=== PATIENT | male | born 1960 | race Caucasian/White ===

== ENCOUNTER 2018-02-13 05:59 | Emergency (ER) | payer SELFPAY ==
[2018-02-13] MEDS ORDERED: ONDANSETRON HCL 4 MG TAB.RAPDIS ONE (06:30)
--- NOTE | 2018-02-13 06:30 | ED Physician Documentation ---
Ankle Injury - HISTORIAN Historian: patient, other (LAW ENFORCEMENT) - HPI Stated Complaint: rt knee pain Chief Complaint: Ankle Injury Additional Information: PT REPORTEDLY INJURED LT ANKLE-FX IN NOVEMBER THIS YEAR IN HOSP IN [place] FOR 3WEEKS-=NO APPAERENT SURGICAL INNERVENTION. STILL HURTS BUT NO NEW INJURY. PT ALSO C/O RT KNEE PAIN BUT NO KNOWN INJURY.PT NOTED TO BEND KNEE W/O DIFFICULTY. THERE IS NO SWLELLING INFLAMATION OR DISCOLORATION-TATOO IS NOTED Onset: other Where: other (SLIPPEDD ON ICE WHEN INJURED ANKLE IN NOV) Severity: moderate r: fall Associated Symptoms:: denies: tingling, numbness distally, swelling, snapping sensation, popping sensation, unable to bear weight Modifying Factors:: pain on movement (BOTH ANKLE AND KNEE) - ROS CONST: no problems (PT IN APPARENTLY HOMELESS). denies: recent illness, fever, chills CVS/RESP: none NEURO: other (PT WAS ATTEMPTING TO VOMIT IN PLASTIC BAG WHEN I FIRST ENTERED ROOMBUT DURING EXAM HE MADE NO EFFORT OR SIGN OF EMESIS. HE STATLED HE HAD BEEN DRINKING APPROX 1/5 VODKA daily.). denies: headache, head injury, dizziness MS/SKIN/LYMPH: back pain, foot swelling, ankle swelling (but i did not see swelling of lknee opr foot and he bent the knee appprox 110 degrees readily to pull up pants leg for examination. there was no swelling or discoloratin only subjective pain when I touched or gently stressed the knee) - PAST HX Past History: cardiac, other (daily etoh-vodka) Allergies/Adverse Reactions: Allergies Allergy/AdvReac Type Severity Reaction Status Date / Time No Known Allergies Allergy Verified 02/13/18 06:18 Home Medications: Ambulatory Orders Medication Instructions Recorded Unobtainable [Unobtainable] 02/13/18 - SOCIAL HX Smoking History: less than 1 pack/day Alcohol Use: heavy Drug Use: none - FAMILY HX Family History: no significant history - VITAL SIGNS Vital Signs: Vital Signs Temp Pulse Resp BP Pulse Ox 97.5 F L 89 20 138/88 98 02/13/18 06:00 02/13/18 06:00 02/13/18 06:00 02/13/18 06:00 02/13/18 06:00 - REVIEWED ASSESSMENTS Nursing Assessment Reviewed: Yes Vitals Reviewed: Yes ED Results Lab/Radiology - Radiology Radiology Impressions: xray ankle fails to show evidence of injury-no fx seen -joint spaces are as expected - Orders Orders: ED Orders Category Date Time Status ANKLE 3 VIEWS OR MORE [RAD] Stat Exams 02/13/18 Ordered Ankle Injury Physical Exam - Physical Exam General Appearance: mild distress (subjective only) Gait: other (pt shows some signs of difficult ambulatin but states no new injury. law enforcement prev reports saw him ambulatle w/o difficulty prior to custody.) Neuro: sensation nml, motor nml Vascular: no vascular compromise. No: pallor, cool skin, abnml cap refill, pulse deficit, dorsalis pedis Tendons: No: tendon function nml, injury seen Leg/Knee/Thigh: soft-tissue tenderness (subjective only w/light touch). No: uninjured above ankle, swelling, deformity, knee effusion, limited ROM Skin: warm. No: crepitus, diaphoresis, decubitus Head/ENT: No: nml inspection, pharynx nml (slightly red no c/o sore throat. some coughing witnessed), tenderness, swelling, ecchymosis Neck/Back: nml inspection Resp/CVS: chest non-tender, breath sounds nml, heart sounds nml, no resp. distress, lungs clear, reg. rate & rhythm Abdomen: non-tender (well healed scar noted mid abdomen prev hernia late 90's) Discharge Clincal Impression: ethanol abuse-nicotine abuse, subjective c/o of rt knee and lt ankle p Referrals: Primary Doctor,No [Primary Care Provider] - 2 Days Comments: fit for confinement - obs for possible delerium tremens Condition: Fair Disposition: 01 HOME, SELF-CARE Decision to Admit: NO Decision Time: 06:52
[2018-02-13] MEDS ORDERED: ONDANSETRON HCL 4 MG TAB.RAPDIS PO ONE (06:54)
--- NOTE | 2018-02-13 06:59 | Diagnostic Imaging Report ---
RADHA RUEDA [facility] [id number] [facility] [id number] Report Submission Date: Feb 13, 2018 6:50:58 AM CDT Patient Study Name: TEVIN BALTAZAR Date: Feb 13, 2018 6:34:17 AM CDT Modality Type: DX Gender: M Description: LOWER EXTREMITY : 62 Institution: [facility] Physician: RADHA RUEDA 3 views of the left ankle Clinical history: Pain. Findings: Examination the left ankle in AP, lateral and oblique views demonstrates deformity of the distal fibula suggesting prior trauma. No definite acute fracture. The ankle mortise is anatomic. Impression: 1. Deformity of the distal fibula consistent with old trauma. 2. No definite acute fracture. Electronically signed on Feb 13, 2018 6:50:58 AM CDT by: Fernando HAMM
[2018-02-13 07:03] VITALS: BP 119/91
== END 2018-02-13 07:02 | disposition home or self-care (01) ==
LOC: ED 05:59
DX: F10.10 Alcohol abuse, uncomplicated (principal); F17.200 Nicotine dependence, unspecified, uncomplicated; M25.561 Pain in right knee; M25.572 Pain in left ankle and joints of left foot; Z02.89 Encounter for other administrative examinations
CPT/HCPCS: 73610; A9270; 99283